=== PATIENT | born 1990 | race Caucasian/White ===

== ENCOUNTER 2016-08-24 19:58 | Emergency (ER) | payer MEDICAID ==
--- NOTE | 2016-08-24 20:13 | ED Physician Documentation ---
PD HPI MHE - Stated complaint Stated Complaint: MHE/SI - Chief complaint Chief Complaint: MHE - History obtained from History obtained from: Patient - History of Present Illness Primary symptom: Suicidal ideation Timing - onset: Today Pain level max: 0 Pain level now: 0 Recently seen: Not recently seen - Additional information Additional information: Patient moved from [place] (staying in hotel there) to [place], to [facility], approximately 1 month ago. Yesterday, she was asked to leave [facility] due to a drug screen that was "positive for everything" (per patient). Patient says she used to smoke heroin but has not done so recently, and hasn't used methamphetamines for months, yet these were two substances that were (+) on the test. Patient returned to [facility] with a knife this evening, threatening to hurt herself, says she wants help with her problems. She denies any thoughts of harming anyone else. She was inpatient at [facility] ([facility] in February as well as in September (and at the end of the September visit, she was transferred to [facility] in [place] x 1 week). Review of Systems Cardiac: reports: Reviewed and negative Respiratory: reports: Reviewed and negative GI: reports: Reviewed and negative Skin: reports: Reviewed and negative Psychiatric: reports: Depressed, Suicidal. denies: Homicidal, Hallucinations, Delusions PD PAST MEDICAL HISTORY - Past Medical History Past Medical History: No - Past Surgical History Past Surgical History: No - Present Medications Home Medications: Ambulatory Orders Medication Instructions Recorded Confirmed Buprenorphine HCl/Naloxone HCl 1 film SL DAILY 08/24/16 08/24/16 [Suboxone 8 mg-2 mg Sl Film] Estradiol [Estradiol Transdermal 1 patch ID UD 08/24/16 08/24/16 Patch] Methylphenidate HCl [Ritalin] 10 mg PO TID 08/24/16 08/24/16 Spironolactone 50 mg PO DAILY 08/24/16 08/24/16 - Allergies Allergies/Adverse Reactions: Allergies Allergy/AdvReac Type Severity Reaction Status Date / Time buspirone HCl * [From BuSpar] Allergy Unknown Verified 08/24/16 20:21 metformin Allergy Unknown Verified 08/24/16 20:21 tramadol Allergy Unknown Verified 08/24/16 20:21 - Living Situation Living Arrangement: reports: care home (until yesterday, when she was asked to leave) PD ED PE NORMAL - Vitals Vital signs reviewed: Yes - General General: Alert and oriented X 3, No acute distress, Other (overweight) - Neck Neck: Supple, no meningeal sign - Cardiac Cardiac: RRR, No murmur - Respiratory Respiratory: No respiratory distress, Clear bilaterally - Abdomen Abdomen: Soft, Non tender - Derm Derm: Normal color, Warm and dry PD ED PE EXPANDED - Psych Psych: Tearful, Withdrawn, Poor eye contact Results - Vitals Vitals: Vital Signs - 24 hr 08/24/16 08/24/16 08/25/16 22:38 22:58 01:10 Temperature 36.5 C Heart Rate 88 84 73 Respiratory 15 18 14 Rate Blood Pressure 156/73 136/82 144/75 O2 Saturation 97 94 97 08/25/16 08/25/16 08/25/16 02:23 05:43 06:52 Temperature 36.5 C Heart Rate 77 84 77 Respiratory 15 15 14 Rate Blood Pressure 140/70 146/73 162/74 O2 Saturation 99 97 99 08/25/16 11:22 Temperature Heart Rate 80 Respiratory Rate Blood Pressure 146/62 O2 Saturation 99 Oxygen O2 Source Room air - Labs Labs: Laboratory Tests 08/24/16 08/24/16 08/24/16 21:05 21:05 21:45 WBC 7.0 RBC 4.29 L Hgb 13.3 L Hct 39.6 L MCV 92.2 MCH 31.0 MCHC 33.6 RDW 13.1 Plt Count 260 MPV 7.7 Neut # 3.8 Lymph # 2.3 Josephine # 0.8 Eos # 0.1 Baso # 0.0 Absolute Nucleated RBC 0.00 Nucleated RBCs 0.0 Sodium 137 Potassium 3.9 Chloride 101 Carbon Dioxide 28 Anion Gap 8.0 BUN 15 Creatinine 0.7 Estimated GFR (MDRD) 139 Glucose 81 Calcium 9.3 Urine Color Urine Clarity Urine pH Ur Specific [place] Urine Protein Urine Glucose (UA) Urine Ketones Urine Occult Blood Urine Nitrite Urine Bilirubin Urine Urobilinogen Ur Leukocyte Esterase Ur Microscopic Review Urine Culture Comments Urine HCG, Qual Salicylates < 6.0 Urine Opiates Screen NEGATIVE Ur Oxycodone Screen NEGATIVE Urine Methadone Screen NEGATIVE Ur Propoxyphene Screen NEGATIVE Acetaminophen < 10 L Ur Barbiturates Screen NEGATIVE Ur Tricyclics Screen NEGATIVE Ur Phencyclidine Scrn NEGATIVE Ur Amphetamine Screen NEGATIVE U Methamphetamines Scrn NEGATIVE U Benzodiazepines Scrn POSITIVE H Urine Cocaine Screen NEGATIVE U Cannabinoids Screen POSITIVE H Ethyl Alcohol 6.0 08/24/16 21:45 WBC RBC Hgb Hct MCV MCH MCHC RDW Plt Count MPV Neut # Lymph # [place] # Eos # Baso # Absolute Nucleated RBC Nucleated RBCs Sodium Potassium Chloride Carbon Dioxide Anion Gap BUN Creatinine Estimated GFR (MDRD) Glucose Calcium Urine Color YELLOW Urine Clarity CLEAR Urine pH 6.0 Ur Specific [place] >=1.030 H Urine Protein TRACE Urine Glucose (UA) NEGATIVE Urine Ketones 15 H Urine Occult Blood NEGATIVE Urine Nitrite NEGATIVE Urine Bilirubin MODERATE H Urine Urobilinogen 0.2 (NORMAL) Ur Leukocyte Esterase NEGATIVE Ur Microscopic Review NOT INDICATED Urine Culture Comments NOT INDICATED Urine HCG, Qual NEGATIVE Salicylates Urine Opiates Screen Ur Oxycodone Screen Urine Methadone Screen Ur Propoxyphene Screen Acetaminophen Ur Barbiturates Screen Ur Tricyclics Screen Ur Phencyclidine Scrn Ur Amphetamine Screen U Methamphetamines Scrn U Benzodiazepines Scrn Urine Cocaine Screen U Cannabinoids Screen Ethyl Alcohol PD MEDICAL DECISION MAKING - ED course Complexity details: reviewed results, re-evaluated patient, considered differential, d/w patient ED course: [facility] was contacted when patient was medically cleared, but they will not page to [facility]; [facility] opines that patient is appropriate to hold in ED until psychiatric social worker can evaluate in AM. Case signed-out to Dr. Pal in the morning (7 AM). Departure - Departure Disposition: 65 Psych Hosp/Unit DC/Xfer Clinical Impression: Suicidal ideation, History of substance abuse Depression Qualifiers: Depression Type: unspecified Qualified Code(s): F32.9 - Major depressive disorder, single episode, unspecified Condition: Stable Discharge Date/Time: 08/25/16 14:35
[2016-08-24 21:15] LABS: BASOPHILS % (AUTO) 0.7 %; EOSINOPHILS # (AUTO) 0.1 10^3/uL (0.0-0.7); EOSINOPHILS % (AUTO) 1.5 %; HCT - HEMATOCRIT 39.6 % (42.0-52.0); HGB - HEMOGLOBIN 13.3 g/dL (14.0-18.0); LYMPHOCYTES # (AUTO) 2.3 10^3/uL (1.5-3.5); LYMPHOCYTES % (AUTO) 32.5 %; MEAN CORPUSCULAR HGB CONC 33.6 g/dL (32.0-36.0); MEAN CORPUSCULAR VOLUME 92.2 fL (80.0-94.0); MEAN PLATELET VOLUME 7.7 fL; MONOCYTES # (AUTO) 0.8 10^3/uL (0.0-1.0); MONOCYTES % (AUTO) 10.9 %; NEUTROPHILS # (AUTO) 3.8 10^3/uL (1.5-6.6); NEUTROPHILS % (AUTO) 54.4 %; RED BLOOD COUNT 4.29 10^6/uL (4.70-6.10); RED CELL DISTRIBUTION WIDTH 13.1 % (12.0-15.0)
[2016-08-24 21:24] LABS: BUN - BLOOD UREA NITROGEN 15 mg/dL (6-20); CALCIUM 9.3 mg/dL (8.5-10.3); CARBON DIOXIDE - CO2 28 mmol/L (21-32); CHLORIDE 101 mmol/L (101-111); CREATININE 0.7 mg/dL (0.6-1.2); GFR - MDRD 139 (>89); GLUCOSE 81 mg/dL (70-100); POTASSIUM 3.9 mmol/L (3.5-5.0); SALICYLATE < 6.0 mg/dL; SODIUM 137 mmol/L (135-145)
[2016-08-24 21:44] LABS: ACETAMINOPHEN < 10 ug/mL (10-30)
[2016-08-24 21:58] LABS: HCG UR QUAL NEGATIVE; UA CHARGE (STRIP ONLY) YES; UR CULTURE IF IND NOT INDICATED
[2016-08-25 11:22] VITALS: BP 146/62
--- NOTE | 2016-08-25 13:36 | ED Physician Documentation ---
PD HPI MHE - Stated complaint Stated Complaint: MHE/SI - Chief complaint Chief Complaint: MHE PD PAST MEDICAL HISTORY - Past Medical History Past Medical History: No Cardiovascular: None Respiratory: None Endocrine/Autoimmune: None GI: Other : None Psych: Depression, Bipolar disorder Musculoskeletal: None Derm: None - Past Surgical History Past Surgical History: No - Present Medications Home Medications: Ambulatory Orders Medication Instructions Recorded Confirmed Buprenorphine HCl/Naloxone HCl 1 film SL DAILY 08/24/16 08/24/16 [Suboxone 8 mg-2 mg Sl Film] Estradiol [Estradiol Transdermal 1 patch ID UD 08/24/16 08/24/16 Patch] Methylphenidate HCl [Ritalin] 10 mg PO TID 08/24/16 08/24/16 Spironolactone 50 mg PO DAILY 08/24/16 08/24/16 - Allergies Allergies/Adverse Reactions: Allergies Allergy/AdvReac Type Severity Reaction Status Date / Time buspirone HCl * [From BuSpar] Allergy Unknown Verified 08/24/16 20:21 metformin Allergy Unknown Verified 08/24/16 20:21 tramadol Allergy Unknown Verified 08/24/16 20:21 - Social History Does the pt smoke?: Yes Smoking Status: Current every day smoker Does the pt drink ETOH?: No Does the pt have substance abuse?: Yes Substance Use and Type: Other - Immunizations Immunizations are current?: No - POLST Patient has POLST: No Results - Vitals Vitals: Vital Signs - 24 hr 08/24/16 08/24/16 08/24/16 20:05 22:38 22:58 Temperature 36.6 C 36.5 C Heart Rate 96 88 84 Respiratory 20 15 18 Rate Blood Pressure 157/105 156/73 136/82 O2 Saturation 98 97 94 08/25/16 08/25/16 08/25/16 01:10 02:23 05:43 Temperature 36.5 C Heart Rate 73 77 84 Respiratory 14 15 15 Rate Blood Pressure 144/75 140/70 146/73 O2 Saturation 97 99 97 08/25/16 08/25/16 06:52 11:22 Temperature Heart Rate 77 80 Respiratory 14 Rate Blood Pressure 162/74 146/62 O2 Saturation 99 99 Oxygen O2 Source Room air - Labs Labs: Laboratory Tests 08/24/16 08/24/16 08/24/16 21:05 21:05 21:45 WBC 7.0 RBC 4.29 L Hgb 13.3 L Hct 39.6 L MCV 92.2 MCH 31.0 MCHC 33.6 RDW 13.1 Plt Count 260 MPV 7.7 Neut # 3.8 Lymph # 2.3 [place] # 0.8 Eos # 0.1 Baso # 0.0 Absolute Nucleated RBC 0.00 Nucleated RBCs 0.0 Sodium 137 Potassium 3.9 Chloride 101 Carbon Dioxide 28 Anion Gap 8.0 BUN 15 Creatinine 0.7 Estimated GFR (MDRD) 139 Glucose 81 Calcium 9.3 Urine Color Urine Clarity Urine pH Ur Specific [place] Urine Protein Urine Glucose (UA) Urine Ketones Urine Occult Blood Urine Nitrite Urine Bilirubin Urine Urobilinogen Ur Leukocyte Esterase Ur Microscopic Review Urine Culture Comments Urine HCG, Qual Salicylates < 6.0 Urine Opiates Screen NEGATIVE Ur Oxycodone Screen NEGATIVE Urine Methadone Screen NEGATIVE Ur Propoxyphene Screen NEGATIVE Acetaminophen < 10 L Ur Barbiturates Screen NEGATIVE Ur Tricyclics Screen NEGATIVE Ur Phencyclidine Scrn NEGATIVE Ur Amphetamine Screen NEGATIVE U Methamphetamines Scrn NEGATIVE U Benzodiazepines Scrn POSITIVE H Urine Cocaine Screen NEGATIVE U Cannabinoids Screen POSITIVE H Ethyl Alcohol 6.0 08/24/16 21:45 WBC RBC Hgb Hct MCV MCH MCHC RDW Plt Count MPV Neut # Lymph # [place] # Eos # Baso # Absolute Nucleated RBC Nucleated RBCs Sodium Potassium Chloride Carbon Dioxide Anion Gap BUN Creatinine Estimated GFR (MDRD) Glucose Calcium Urine Color YELLOW Urine Clarity CLEAR Urine pH 6.0 Ur Specific [place] >=1.030 H Urine Protein TRACE Urine Glucose (UA) NEGATIVE Urine Ketones 15 H Urine Occult Blood NEGATIVE Urine Nitrite NEGATIVE Urine Bilirubin MODERATE H Urine Urobilinogen 0.2 (NORMAL) Ur Leukocyte Esterase NEGATIVE Ur Microscopic Review NOT INDICATED Urine Culture Comments NOT INDICATED Urine HCG, Qual NEGATIVE Salicylates Urine Opiates Screen Ur Oxycodone Screen Urine Methadone Screen Ur Propoxyphene Screen Acetaminophen Ur Barbiturates Screen Ur Tricyclics Screen Ur Phencyclidine Scrn Ur Amphetamine Screen U Methamphetamines Scrn U Benzodiazepines Scrn Urine Cocaine Screen U Cannabinoids Screen Ethyl Alcohol Departure - Departure Disposition: 65 Psych Hosp/Unit DC/Xfer Clinical Impression: Suicidal ideation, History of substance abuse Depression Qualifiers: Depression Type: unspecified Qualified Code(s): F32.9 - Major depressive disorder, single episode, unspecified Condition: Stable
[2016-08-25 21:31] LABS: BILIRUBIN,URINE NEGATIVE (NEGATIVE)
== END 2016-08-25 14:35 ==
LOC: ED 19:58
DX: F32.9 Major depressive disorder, single episode, unspecified (principal); R45.851 Suicidal ideations; F31.9 Bipolar disorder, unspecified; F17.200 Nicotine dependence, unspecified, uncomplicated; Z87.898 Personal history of other specified conditions
CPT/HCPCS: 36415; 80048; 80306; 80307; 80320; 80329; 81001; 81003; 81025; 85025; 87086; 99284

== ENCOUNTER 2017-03-24 08:00 | Outpatient (CLI) | payer MEDICAID | END 2017-03-24 08:01 | LOC: LAB.R 08:00 | PROVIDERS: ATTEND Emergency Medicine | DX: F31.2 Bipolar disorder, current episode manic severe with psychotic features (principal) | CPT/HCPCS: 80178 ==

== ENCOUNTER 2017-07-03 08:00 | Outpatient (CLI) | payer MEDICAID ==
[2017-07-03 16:48] LABS: ALBUMIN 4.6 g/dL (3.2-5.5); ALBUMIN/GLOBULIN RATIO 1.4 (1.0-2.2); BILIRUBIN,TOTAL 0.4 mg/dL (0.2-1.0); CALCIUM 9.3 mg/dL (8.5-10.3); CREATININE 0.8 mg/dL (0.6-1.2); TOTAL PROTEIN 7.8 g/dL (6.7-8.2)
[2017-07-03 16:49] LABS: BASOPHILS # (AUTO) 0.1 10^3/uL (0.0-0.1); BASOPHILS % (AUTO) 0.7 %; EOSINOPHILS # (AUTO) 0.2 10^3/uL (0.0-0.7); EOSINOPHILS % (AUTO) 2.9 %; HGB - HEMOGLOBIN 13.2 g/dL (14.0-18.0); LYMPHOCYTES # (AUTO) 2.7 10^3/uL (1.5-3.5); LYMPHOCYTES % (AUTO) 34.7 %; MEAN CORPUSCULAR HEMOGLOBIN 28.3 pg (27.0-31.0); MEAN CORPUSCULAR VOLUME 88.4 fL (80.0-94.0); MEAN PLATELET VOLUME 7.1 fL; MONOCYTES # (AUTO) 0.6 10^3/uL (0.0-1.0); NEUTROPHILS # (AUTO) 4.2 10^3/uL (1.5-6.6); NEUTROPHILS % (AUTO) 53.7 %; PLT - PLATELET COUNT 353 10^3/uL (130-450); RED BLOOD COUNT 4.66 10^6/uL (4.70-6.10); RED CELL DISTRIBUTION WIDTH 12.5 % (12.0-15.0); WHITE BLOOD COUNT 7.8 x10^3/uL (4.8-10.8)
== END 2017-07-03 08:01 | disposition home or self-care (01) ==
LOC: LAB.R 08:00
PROVIDERS: ATTEND Emergency Medicine
DX: F64.0 Transsexualism (principal)
CPT/HCPCS: 80053; 81599; 82040; 82670; 84270; 84402; 84403; 84443; 85025